=== PATIENT | male | born 1980 | race African-American/Black ===

== ENCOUNTER → 2016-12-28 | Outpatient (REF) ==
[~2016-12-28] MED LIST: AMOXICILLIN 8751 TAB PO; LEVAQUIN 750MG750 M1 PO; MONODOX100 PO; NORCO 325 MG-51 TAB PO; SENOKOT S 50 MG1 TAB PO; VENTOLIN0.09 MG IH; XARELTO15 MG PO
== END ==
LOC: WSOH 10:36
DX: Z00.00 Encounter for general adult medical examination without abnormal findings (principal)

== ENCOUNTER 2017-06-26 19:55 | Emergency (ER) | payer OTHER ==
[~2017-06-26] VITALS: Ht 195.6 cm; Wt 86.4 kg
[2017-06-26 19:58] VITALS: TEMP 98
[2017-06-26] MEDS ORDERED: EPIPEN 2-PAK1 MG/ML IM (21:02)
[2017-06-26 22:29] VITALS: BP 130/87; PULSE 89
== END 2017-06-26 22:29 | disposition home or self-care (01) ==
LOC: COL.ER 19:55
DX: T78.05XA Anaphylactic reaction due to tree nuts and seeds, initial encounter (principal)
CPT/HCPCS: J0171; J1200; J2930; J8540